=== PATIENT | male | born 1970 | race Caucasian/White ===

== ENCOUNTER 2017-07-02 18:55 | Emergency (ER) | payer OTHER ==
--- NOTE | 2017-07-02 21:11 | EDPHYS ---
Physician Documentation [facility] Name: Armin Zavaleta Age: 47 yrs Sex: Male : 1970 Arrival Date: 07/02/2017 Time: 19:01 Bed 19 Private MD: ED Physician Kendall Tsai HPI: 07/02 19:40 This 47 yrs old Male presents to ER via Ambulatory with complaints of Ear cp Pain. 19:40 The patient presents with pain, that is acute. cp 19:40 The complaints affect the left ear. cp 19:40 Onset: The symptoms/episode began/occurred 5 day(s) ago. cp 19:40 Associated signs and symptoms: Pertinent positives: left side neck pain, sore throat. cp Severity of symptoms: in the emergency department the symptoms are unchanged despite home interventions. Historical: - Allergies: 19:11 PENICILLINS; aj 19:11 Codeine; aj - Home Meds: 19:11 None [Active]; aj - PMHx: 19:11 None; aj - PSHx: 19:11 None; aj - Immunization history:: Adult Immunizations up to date. - Social history:: Smoking status: Patient uses tobacco products, smokes one pack cigarettes per day. - Ebola Screening: : No symptoms or risks identified at this time. ROS: 19:40 Constitutional: Negative for body aches, chills, fever, poor PO intake. cp 19:40 Eyes: Negative for injury, pain, redness, and discharge. cp 19:40 ENT: Positive for ear pain, sore throat, Negative for drainage from ear(s), rhinorrhea, sinus congestion, sinus pain, difficulty swallowing, difficulty handling secretions, hoarseness. 19:40 Cardiovascular: Negative for chest pain, edema, palpitations. 19:40 Respiratory: Negative for cough, shortness of breath, wheezing. 19:40 Abdomen/GI: Negative for abdominal pain, nausea, vomiting, and diarrhea. 19:40 Skin: Negative for cellulitis, rash. 19:40 Neuro: Negative for altered mental status, headache, weakness. 19:40 All other systems are negative. Exam: 19:55 Constitutional: The patient appears in no acute distress, alert, awake, non-toxic, well cp developed, well nourished. 19:55 Head/Face: Normocephalic, atraumatic. cp 19:55 Eyes: Periorbital structures: appear normal, Pupils: equal, round, and reactive to light and accomodation, Extraocular movements: intact throughout, Conjunctiva: normal, no exudate, no injection, Sclera: no appreciated abnormality, Lids and lashes: appear normal, bilaterally. 19:55 ENT: External ear(s): are unremarkable, Ear canal(s): cerumen impaction, that is severe, occluding the left ear canal, erythema, is not appreciated, purulent discharge, is not appreciated, TM's: not visable, because of cerumen, Examination of the other ear shows no obvious abnormality, Nose: is normal, Mouth: Lips: moist, Oral mucosa: moist, Posterior pharynx: Airway: no evidence of obstruction, patent, Tonsils: are normal in appearance, Uvula: midline, swelling, is not appreciated, erythema, is not appreciated, exudate, is not appreciated. 19:55 Neck: ROM/movement: is normal, is supple, no range of motions limitations, no meningismus, no nuchal rigidity, Lymph nodes: no appreciated lymphadenopathy. 19:55 Chest/axilla: Inspection: normal, Palpation: is normal, no crepitus, no tenderness. 19:55 Cardiovascular: Rate: normal, Rhythm: regular. 19:55 Respiratory: the patient does not display signs of respiratory distress, Respirations: normal, no use of accessory muscles, no retractions, no splinting, no tachypnea, labored breathing, is not present, Breath sounds: are clear throughout, no decreased breath sounds, no stridor, no wheezing. 19:55 Abdomen/GI: Exam negative for discomfort, distension, guarding, Inspection: abdomen appears normal. 19:55 Skin: cellulitis, is not appreciated, no rash present. Vital Signs: 19:11 BP 123 / 81; Pulse 79; Resp 20; Temp 98.1; Pulse Ox 98% on R/A; Weight 95.25 kg; Height aj 6 ft. 4 in. (193.04 cm); 19:11 Body Mass Index 25.56 (95.25 kg, 193.04 cm) aj MDM: 19:15 Patient medically screened. cp 20:40 Differential diagnosis: otitis media, otitis externa, ruptured TM, foreign body, cp cerumen impaction. 20:50 Data reviewed: vital signs, nurses notes, and as a result, I will discharge patient. cp Counseling: I had a detailed discussion with the patient and/or guardian regarding: the historical points, exam findings, and any diagnostic results supporting the discharge/admit diagnosis, the need for outpatient follow up, an ENT specialist. Response to treatment: There is no appreciated change of the patient's symptoms at this time, left EAC remains impacted, and as a result, I will discharge patient. 07/02 20:09 Order name: Group A Streptococcus Rapid Sc; Complete Time: 20:42 EDMS 07/02 20:42 Interpretation: Reviewed. cp 07/02 19:37 Order name: Misc. Order: please flush and irrigate left ear canal; Complete Time: 20:53 cp 07/02 20:37 Order name: Throat Culture EDMS Administered Medications: No medications were administered Disposition: 07/03 01:01 Co-signature as Attending Physician, Kendall Tsai MD available for consultation at ps1 all times. . Disposition: 07/02/17 20:52 Discharged to Home. Impression: Impacted cerumen, left ear. - Condition is Stable. - Discharge Instructions: Cerumen Impaction, Ear Drops, Adult. - Medication Reconciliation Form, Thank You Letter, Antibiotic Education, Prescription Opioid Use form. - Follow up: Audra Beck MD; When: 1 - 2 days; Reason: Recheck today's complaints. - Problem is new. - Symptoms are unchanged. Signatures: Dispatcher [employer] EDAR Katharine Mathias RN RN aj Page, Corey, PA PA cp Kluge, Leah, RN RN lk1 Kendall Tsai MD MD ps1 Corrections: (The following items were deleted from the chart) 07/02 21:06 20:52 07/02/2017 20:52 Discharged to Home. Impression: Impacted cerumen, left ear. lk1 Condition is Stable. Forms are Medication Reconciliation Form, Thank You Letter, Antibiotic Education, Prescription Opioid Use. Follow up: Audra Beck; When: 1 - 2 days; Reason: Recheck today's complaints. Problem is new. Symptoms are unchanged. cp
--- NOTE | 2017-07-02 21:11 | ER ---
Nurse's Notes [facility] Name: Armin Zavaleta Age: 47 yrs Sex: Male : 1970 Arrival Date: 07/02/2017 Time: 19:01 Bed 19 Private MD: Diagnosis: Impacted cerumen, left ear Presentation: 07/02 19:10 Presenting complaint: Patient states: Left ear pain for 5 days, left neck pain for 3 aj days. Transition of care: patient was not received from another setting of care. Onset of symptoms was June 28, 2017. Care prior to arrival: None. 19:10 Method Of Arrival: Ambulatory 19:10 Acuity: BILLY 4 aj 21:06 Risk Assessment: Do you want to hurt yourself or someone else? Patient reports no lk1 desire to harm self or others. Initial Sepsis Screen: Does the patient meet any 2 criteria? No. Patient's initial sepsis screen is negative. Does the patient have a suspected source of infection? No. Patient's initial sepsis screen is negative. Triage Assessment: 19:11 General: Appears in no apparent distress. comfortable, Behavior is calm, cooperative, aj appropriate for age. Pain: Complains of pain in left ear, left posterior aspect of neck and left lateral aspect of neck. EENT: Reports pain in left ear. Neuro: Level of Consciousness is awake, alert, obeys commands, Oriented to person, place, time, situation, Appropriate for age. Respiratory: Airway is patent Respiratory effort is even, unlabored, Respiratory pattern is regular, symmetrical. Musculoskeletal: Reports pain in left ear, left posterior aspect of neck and left lateral aspect of neck. Historical: - Allergies: 19:11 PENICILLINS; aj 19:11 Codeine; aj - Home Meds: 19:11 None [Active]; aj - PMHx: 19:11 None; aj - PSHx: 19:11 None; aj - Immunization history:: Adult Immunizations up to date. - Social history:: Smoking status: Patient uses tobacco products, smokes one pack cigarettes per day. - Ebola Screening: : No symptoms or risks identified at this time. Screenin:29 Abuse screen: Denies threats or abuse. Denies injuries from another. Nutritional lk1 screening: No deficits noted. Tuberculosis screening: No symptoms or risk factors identified. Fall Risk None identified. Assessment: 19:28 General: Appears in no apparent distress. Behavior is calm, cooperative, appropriate lk1 for age. Pain: Complains of pain in left ear Pain currently is 8 out of 10 on a pain scale. Neuro: Level of Consciousness is awake, alert, obeys commands, Oriented to person, place, time, situation. Cardiovascular: Capillary refill is brisk Patient's skin is warm and dry. Respiratory: Airway is patent Respiratory effort is even, unlabored, Respiratory pattern is regular, symmetrical. EENT: Reports pain in left ear. Vital Signs: 19:11 BP 123 / 81; Pulse 79; Resp 20; Temp 98.1; Pulse Ox 98% on R/A; Weight 95.25 kg; Height aj 6 ft. 4 in. (193.04 cm); 19:11 Body Mass Index 25.56 (95.25 kg, 193.04 cm) ED Course: 19:01 Patient arrived in ED. as 19:11 Triage completed. aj 19:12 Arm band placed on right wrist. Patient placed in waiting room. aj 19:15 Seamus Weinstein PA is PHCP. cp 19:15 Kendall Tsai MD is Attending Physician. cp 19:20 Ema aRmos, BEVERLY is Primary Nurse. lk1 19:57 Strep swab sent to lab. cc 20:52 Audra Beck MD is Referral Physician. cp 20:53 Ear irrigation: Route left ear with Other tap water amount 1000ml Patient tolerated lk1 well. 21:06 Patient has correct armband on for positive identification. Bed in low position. Call lk1 light in reach. Adult w/ patient. 21:06 No provider procedures requiring assistance completed. Patient did not have IV access lk1 during this emergency room visit. Administered Medications: No medications were administered Outcome: 20:52 Discharge ordered by MD. cp 21:05 Discharged to home ambulatory, with significant other. lk1 21:05 Condition: good 21:05 Discharge instructions given to patient, significant other, Instructed on discharge instructions, follow up and referral plans. medication usage, safety practices, Demonstrated understanding of instructions, follow-up care, medications. 21:06 Patient left the ED. lk1 Signatures: Katharine Mathias RN RN Mili Rodriguez Chelsea Page, Seamus, PA PA cp Kluge, Ema, RN RN lk1
== END 2017-07-02 21:06 | disposition home or self-care (01) ==
LOC: ER 18:55
DX: H61.22 Impacted cerumen, left ear (principal); Z88.0 Allergy status to penicillin; Z88.6 Allergy status to analgesic agent; F17.210 Nicotine dependence, cigarettes, uncomplicated
CPT/HCPCS: 87070; 87081; 99283